=== PATIENT | male | born 1960 | race Caucasian/White ===

== ENCOUNTER → 2020-11-29 | Outpatient (CLI) | payer OTHER ==
[~2020-11-29] MED LIST: ATORVASTATIN CA40 MG PO; BACTRIM DS TAB1 EACH PO; CARAFATE 1 GM TA1 G1 PO; CEFUROXIME250 MG PO; CIPRO250 M1 PO; CITROMA296 ML PO; COLACE100 MG PO; FLAGYL500 MG PO; FLOMAX0.4 MG PO; LINZESS145 MCG PO; MACROBID 100 M100 M1 PO; MIRALAX17 GM PO; MORPHINE PUMP IMPLANT; NAMENDA 10 MG T10 MG PO; NEURONTIN 300300 M1 PO; PERCOCET 10-321 EACH PO; PROBIOTIC1 EAC1 PO; PROTONIX40 M4 PO; PROZAC20 MG PO; REGLAN 10 MG TA10 MG PO; SEROQUEL 50 MG50 MG PO; TRAZODONE 150150 M1 PO; VITAMIN D1000 UNI1 PO; XANAX2 MG PO; ZOFRAN ODT4 MG PO
--- NOTE | 2020-11-29 13:33 | 2DMMODE ---
[place] [address] 2 D/M-MODE ECHOCARDIOGRAM Name: PASCALE HART Room: [facility]#: [id number] Admission: 11/29/20 Attend Phys: Gela Poole MD Discharge: Date of : 56 Date of Service: 11/29/20 1332 Report #: [id number] THIS REPORT FOR: cc: Gela Poole MD, Diane S. MD Blick, David R. MD [facility] ~ APPROVED REPORT Study performed: 11/29/2020 10:44:45 EXAM: Comprehensive 2D, Doppler, and color-flow Echocardiogram Patient Location: Out-Patient BSA: 1.77 HR: 63 bpm Other Information Study Quality: Good Indications Cardiomegaly Peripheral Edema 2D Dimensions IVSd: 10.81 (7-11mm) LVOT Diam: 19.98 (18-24mm) LVDd: 47.09 mm PWd: 8.37 (7-11mm) Ascending Ao: 27.43 (22-36mm) LVDs: 33.87 (25-40mm) Aortic Root: 31.14 mm Volumes Left Atrial Volume (Systole) LA ESV Index: 22.90 mL/m2 Aortic Valve AoV Peak Marin.: 1.42 m/s AO Peak Gr.: 8.04 mmHg LVOT Max P.76 mmHg AO Mean Gr.: 3.57 mmHg LVOT Mean P.24 mmHg LVOT Max V: 0.83 m/s AO V2 VTI: 26.39 cm LVOT Mean V: 0.51 m/s JAVIER (VTI): 2.17 cm2 LVOT V1 VTI: 18.26 [place] [address] 2 D/M-MODE ECHOCARDIOGRAM Name: PASCALE HART Room: [facility]#: [id number] Admission: 11/29/20 Attend Phys: Gela Poole MD Discharge: Date of : 56 Date of Service: 11/29/20 1332 Report #: [id number] E/A Ratio: 0.86 MV Decel. Time: 327.37 ms MV E Max Marin.: 0.51 m/s MV PHT: 94.94 ms MVA (PHT): 2.32 cm2 TDI E/Lateral E': 4.25 E/Medial E': 4.64 Medial E' Marin.: 0.11 m/s Lateral E' Marin.: 0.12 m/s Pulmonary Valve PV Peak Marin.: 1.06 m/s PV Peak Gr.: 4.45 mmHg Tricuspid Valve RAP Estimate: 5.00 mmHg TR Peak Gr.: 15.11 mmHg RVSP: 20.11 mmHg PA Pressure: 20.11 mmHg Left Ventricle The left ventricle is normal size. There is normal LV segmental wall motion. There is normal left ventricular wall thickness. Left ventricular systolic function is normal. The left ventricular ejection fraction is within the normal range. LVEF is 55-60%. Grade I - abnormal relaxation pattern. Right Ventricle The right ventricle is normal size. The right ventricular systolic function is normal. Atria The left atrium size is normal. The right atrium size is normal. Aortic Valve The aortic valve is normal in structure. No aortic regurgitation is present. There is no aortic valvular stenosis. Mitral Valve The mitral valve is normal in structure. There is no mitral valve regurgitation noted. No evidence of mitral valve stenosis. Tricuspid Valve The tricuspid valve is normal in structure. Mild [place] [address] 2 D/M-MODE ECHOCARDIOGRAM Name: PASCALE HART Luisa Room: [facility]#: [id number] Admission: 11/29/20 Attend Phys: Gela Poole MD Discharge: Date of : 56 Date of Service: 11/29/20 1332 Report #: [id number] Pulmonic Valve The pulmonary valve is normal in structure. There is no pulmonic valvular regurgitation. Great Vessels The aortic root is normal in size. IVC is normal in size and collapses >50% with inspiration. Pericardium There is no pericardial effusion. <Conclusion> Left ventricular systolic function is normal. The left ventricular ejection fraction is within the normal range. <ELECTRONICALLY SIGNED> By: Justin Pagan MD, FACC 11/29/201331 31 31 Justin Pagan MD, FAC /INF
== END ==
LOC: M.CRD 10:49
PROVIDERS: ATTEND Internal Medicine
DX: I07.1 Rheumatic tricuspid insufficiency (principal); R60.0 Localized edema